=== PATIENT | female | born 1975 | race Caucasian/White ===

== ENCOUNTER 2020-04-27 06:44 | Inpatient (IN) ==
[2020-04-27] MEDS ORDERED: ceFAZolin 2,000 MG in PREMIX 1 EACH IV ONE (10:21)
[2020-04-27] MEDS ORDERED: PROMETHAZINE 25 MG/1 ML VIAL IM PRN (10:23)
[2020-04-27] MEDS ORDERED: ACETAMINOPHEN 325 MG TABLET PO PRN (10:23)
[2020-04-27] MEDS ORDERED: LIDOCAINE 1%/EPI INJ 20 ML VIAL ONE (10:36)
[2020-04-27] MEDS ORDERED: BUPIVACAINE 0.25% /EPI 10 ML VIAL ONE (10:36)
[2020-04-27] MEDS ORDERED: DIAZEPAM 5 MG TABLET PO ONE (10:46)
[2020-04-27] MEDS ORDERED: GABAPENTIN 400 MG CAPSULE PO ONE (10:46)
[2020-04-27] MEDS: LACTATED RINGERS 1,000 ML IV SCH ×2 (10:57→17:31)
[2020-04-27] MEDS ORDERED: SUGAMMADEX 200 MG/2 ML VIAL IV ONE (13:42)
[2020-04-27] MEDS ORDERED: LIDOCAINE 2% 5 ML VIAL ONE (14:09)
[2020-04-27] MEDS ORDERED: propofoL 200 MG/20 ML VIAL IV ONE (14:09)
[2020-04-27] MEDS ORDERED: SEVOFLURANE 1 UNIT/15 MINUTE INH ONE (14:09)
[2020-04-27] MEDS ORDERED: fentaNYL 100 MCG/2 ML VIAL ONE (14:09)
[2020-04-27] MEDS ORDERED: KETOROLAC 30 MG/1 ML VIAL ONE (14:10)
[2020-04-27] MEDS ORDERED: GLYCOPYRROLATE 0.4 MG/2 ML VIAL ONE (14:10)
[2020-04-27] MEDS ORDERED: NEOSTIGMINE 10 MG/10 ML VIAL ONE (14:10)
[2020-04-27] MEDS ORDERED: ONDANSETRON 4 MG/2 ML VIAL ONE ×2 (14:10→14:29)
[2020-04-27] MEDS ORDERED: ACETAMINOPHEN 1,000 MG/100 ML VIAL IV ONE (14:10)
[2020-04-27] MEDS ORDERED: MIDAZOLAM 2 MG/2 ML VIAL ONE (14:10)
[2020-04-27] MEDS ORDERED: DEXAMETHASONE 4 MG/1 ML VIAL ONE (14:10)
[2020-04-27] MEDS ORDERED: SUCCINYLCHOLINE 200 MG/10 ML VIAL ONE (14:10)
[2020-04-27] MEDS ORDERED: LACTATED RINGERS 1,000 ML IV ONE (14:10)
[2020-04-27] MEDS ORDERED: ROCURONIUM 100 MG/10 ML VIAL IV ONE (14:10)
[2020-04-27] MEDS ORDERED: HYDROmorphone 2 MG/1 ML VIAL ONE (14:29)
[2020-04-27] MEDS ORDERED: ONDANSETRON 4 MG/2 ML VIAL IV PRN (14:30)
[2020-04-27] MEDS: HYDROmorphone 2 MG/1 ML VIAL IV PRN ×4 (14:30→14:45)
[2020-04-27 14:36] LABS: Basophils % 0.3 % (0.0-0.8); Eosinophils # 0.2 10*3/uL (0.0-0.87); Eosinophils % 1.6 % (0.00-10.9); Hematocrit 43.2 VOL% (35.7-47.0); Hemoglobin 13.8 GM/DL (12.0-16.0); Immature Granulocytes % 0.3 %; Immature Granulocytes Absolute 0.03 #; Lymphocytes # 1.2 10*3/uL (1.4-4.0); Mean Corpuscular HGB Conc 31.9 GM/DL (32-36); Mean Corpuscular Volume 88.7 FL (87-102); Mean Platelet Volume 9.7 FL (9.6-12.0); Monocytes % 1.9 % (1.7-12.7); Neutrophils % 84.9 % (38.7-73.9); Platelet Count 288 T/CUMM (130-400); Red Blood Count 4.87 MC/CUMM (3.8-5.5); Red Cell Distribution Width 13.2 % (9.3-17.3); White Blood Count 10.8 T/CUMM (4-12)
[2020-04-27 14:52] LABS: Calcium 8.5 MG/DL (8.5-10.1); Osmolality,Calculated 276.7 MOS/KG (273-304)
[2020-04-27] MEDS: ENOXAPARIN 40 MG/0.4 ML SYRINGE SUBCUT SCH (15:27)
[2020-04-27] MEDS: ONDANSETRON 4 MG/2 ML VIAL IV PRN (20:54)
[2020-04-28] MEDS: LACTATED RINGERS 1,000 ML IV SCH (02:05)
[2020-04-28 06:20] LABS: Basophils % 0.1 % (0.0-0.8); Eosinophils % 0.1 % (0.00-10.9); Hematocrit 38.5 VOL% (35.7-47.0); Hemoglobin 12.5 GM/DL (12.0-16.0); Immature Granulocytes % 0.2 %; Immature Granulocytes Absolute 0.02 #; Lymphocytes % 9.3 % (21.3-54.2); Mean Corpuscular HGB Conc 32.5 GM/DL (32-36); Mean Corpuscular Volume 86.5 FL (87-102); Mean Platelet Volume 10.5 FL (9.6-12.0); Monocytes % 5.8 % (1.7-12.7); Neutrophils % 84.5 % (38.7-73.9); Platelet Count 280 T/CUMM (130-400); Red Blood Count 4.45 MC/CUMM (3.8-5.5); Red Cell Distribution Width 13.3 % (9.3-17.3); White Blood Count 10.7 T/CUMM (4-12)
[2020-04-28 06:39] LABS: Calcium 8.5 MG/DL (8.5-10.1); Osmolality,Calculated 270.1 MOS/KG (273-304)
[2020-04-28] MEDS: PANTOPRAZOLE 40 MG TABLET PO SCH (08:23)
[2020-04-28] MEDS: ONDANSETRON 4 MG/2 ML VIAL IV PRN ×2 (08:28→14:43)
[2020-04-28] MEDS: DEXT 5% NACL 0.45% KCL 20 MEQ 20 MEQ/1,000 ML BAG IV SCH ×3 (10:15→18:25)
[2020-04-28] MEDS: ENOXAPARIN 40 MG/0.4 ML SYRINGE SUBCUT SCH (14:39)
[2020-04-28] MEDS: HYDROmorphone 2 MG/1 ML VIAL IV PRN (14:42)
[2020-04-29 06:44] LABS: Basophils % 0.5 % (0.0-0.8); Eosinophils # 0.3 10*3/uL (0.0-0.87); Eosinophils % 4.8 % (0.00-10.9); Hematocrit 35.8 VOL% (35.7-47.0); Hemoglobin 11.5 GM/DL (12.0-16.0); Immature Granulocytes % 0.2 %; Immature Granulocytes Absolute 0.01 #; Lymphocytes # 1.8 10*3/uL (1.4-4.0); Lymphocytes % 28.5 % (21.3-54.2); Mean Corpuscular HGB Conc 32.1 GM/DL (32-36); Mean Corpuscular Volume 88.2 FL (87-102); Mean Platelet Volume 10.3 FL (9.6-12.0); Monocytes % 7.6 % (1.7-12.7); Neutrophils % 58.4 % (38.7-73.9); Platelet Count 253 T/CUMM (130-400); Red Blood Count 4.06 MC/CUMM (3.8-5.5); Red Cell Distribution Width 13.8 % (9.3-17.3); White Blood Count 6.2 T/CUMM (4-12)
[2020-04-29 07:08] LABS: Calcium 7.9 MG/DL (8.5-10.1); Osmolality,Calculated 276.4 MOS/KG (273-304)
[2020-04-29] MEDS: HYDROmorphone 2 MG/1 ML VIAL IV PRN (08:21)
[2020-04-29] MEDS: PANTOPRAZOLE 40 MG TABLET PO SCH (08:22)
[2020-04-29] MEDS: ONDANSETRON 4 MG/2 ML VIAL IV PRN (08:22)
[2020-04-29] MEDS: DEXT 5% NACL 0.45% KCL 20 MEQ 20 MEQ/1,000 ML BAG IV SCH ×3 (09:25→18:18)
[2020-04-29] MEDS: METHOCARBAMOL INJ 500 MG in SODIUM CHLORIDE 0.9% 100 ML IV SCH ×2 (11:31→18:18)
[2020-04-29] MEDS: ENOXAPARIN 40 MG/0.4 ML SYRINGE SUBCUT SCH (14:31)
[2020-04-30] MEDS: DEXT 5% NACL 0.45% KCL 20 MEQ 20 MEQ/1,000 ML BAG IV SCH ×2 (00:34→09:04)
[2020-04-30] MEDS: METHOCARBAMOL INJ 500 MG in SODIUM CHLORIDE 0.9% 100 ML IV SCH (02:43)
[2020-04-30 06:37] LABS: Basophils % 0.1 % (0.0-0.8); Eosinophils # 0.3 10*3/uL (0.0-0.87); Eosinophils % 4.2 % (0.00-10.9); Hematocrit 35.2 VOL% (35.7-47.0); Hemoglobin 11.6 GM/DL (12.0-16.0); Immature Granulocytes % 0.3 %; Immature Granulocytes Absolute 0.02 #; Lymphocytes # 1.5 10*3/uL (1.4-4.0); Lymphocytes % 21.8 % (21.3-54.2); Mean Corpuscular Volume 86.5 FL (87-102); Mean Platelet Volume 9.9 FL (9.6-12.0); Monocytes % 7.2 % (1.7-12.7); Neutrophils % 66.4 % (38.7-73.9); Platelet Count 252 T/CUMM (130-400); Red Blood Count 4.07 MC/CUMM (3.8-5.5); Red Cell Distribution Width 13.3 % (9.3-17.3); White Blood Count 6.7 T/CUMM (4-12)
[2020-04-30 06:55] LABS: Calcium 8.1 MG/DL (8.5-10.1); Osmolality,Calculated 278.3 MOS/KG (273-304)
[2020-04-30 07:56] VITALS: BP 131/82
[2020-04-30] MEDS: PANTOPRAZOLE 40 MG TABLET PO SCH (09:05)
== END 2020-04-30 10:09 | disposition home or self-care (01) | DRG 354 ==
LOC: N.3E 09:48
PROVIDERS: ADMIT Surgery; ATTEND Surgery